=== PATIENT | female | born 2000 | race Two or more races ===

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

== ENCOUNTER 2025-09-22 15:04 | Emergency (ER) | payer MEDICAID, OTHER ==
[~2025-09-22] VITALS: Ht 157.5 cm; Wt 71.3 kg
--- NOTE | 2025-09-22 15:14 | ED.PDOC ---
Altered Mental Status HPI Comments 24 y.o female presents to the ED via EMS for an evaluation of a syncopal episode accompanied by substernal chest pain radiating to her upper back and nausea while working today. Patient states her chest became tight, heard a pop sensation and mentions did lose consciousness for a couple seconds. She denies any vomiting, fever, chills, SOB, or leg swelling. Time Seen by MD: 15:05 Primary Care Provider: JESSEEIES Reviewed Notes: Nurses Notes, Community Development Director Notes, Medications, Allergies Allergies: Coded Allergies: NO KNOWN ALLERGIES (Unverified , 05/26/16) Information Source: Patient, Emergency Med Personnel Mode of Arrival: EMS Severity: Moderate Timing: Hours Duration: Since onset Quality: Decreased Alertness, Change in Behavior Recent: Nausea History of: None Associated Signs and Symptoms: Chest Pain Past Medical History PAST MEDICAL HISTORY: Denies Surgical History: Denies all surgeries GLOBAL CLIMATE CHANGE ANALYST History: No Pertinent GLOBAL CLIMATE CHANGE ANALYST History Family History Family History: Unknown Social History Smoker: Non-Smoker Alcohol: Denies ETOH Use Drugs: Denies Drug Use Lives In: Home Constitutional: denies: chills, diaphoresis, fatigue, fever, malaise, sweats, weakness, others EENTM: denies: blurred vision, double vision, ear bleeding, ear discharge, ear drainage, ear pain, ear ringing, eye pain, eye redness, hearing loss, mouth pain, mouth swelling, nasal discharge, nose bleeding, nose congestion, nose pain, photophobia, tearing, throat pain, throat swelling, voice changes, others Respiratory: denies: cough, hemoptysis, orthopnea, SOB at rest, shortness of breath, SOB with excertion, stridor, wheezing, others Cardiovascular: reports: chest pain, syncope; denies: dizzy spells, diaphoresis, Dyspnea on exertion, edema, irregular heart beat, left arm pain, lightheadedness, palpitations, PND, others Gastrointestinal: reports: nausea; denies: abdomen distended, abdominal pain, blood streaked bowels, constipated, diarrhea, dysphagia, difficulty swallowing, hematemesis, melena, poor appetite, poor fluid intake, rectal bleeding, rectal pain, vomiting, others Genitourinary: denies: abnormal vagina bleeding, burning, dyspareunia, dysuria, flank pain, frequency, hematuria, incontinence, pain, , vagina discharge, urgency, others Neurological: denies: dizziness, fainting, headache, left sided numbness, left sided weakness, numbness, paresthesia, pre-existing deficit, right sided numbness, right sided weakness, seizure, speech problems, tingling, tremors, weakness, others Musculoskeletal: reports: back pain; denies: gout, joint pain, joint swelling, muscle pain, muscle stiffness, neck pain, others Integumetry: denies: bruises, change in color, change in hair/nails, dryness, laceration, lesions, lumps, rash, wounds, others Allergic/Immunocompromised: denies: Difficulty Healing, Frequent Infections, Hives, Itching, others Hematologic/Lymphatic: denies: anemia, blood clots, easy bleeding, easy bruising, swollen glands, others Endocrine: denies: excessive hunger, excessive sweating, excessive thirst, excessive urination, flushing, intolerance to cold, intolerance to heat, unexplained weight gain, unexplained weight loss, others Psychiatric: denies: anxiety, bipolar disorder, depression, hopeless, panic disorder, schizophrenia, sleepless, suicidal, others All Other Systems: Reviewed and Negative Physical Exam General Appearance: Moderate Distress HEENT: Normal ENT Inspection, Pharynx Normal, TMs Normal Neck: Full Range of Motion, Non-Tender, Normal, Normal Inspection Respiratory: Chest Non-Tender, Lungs Clear, No Accessory Muscle Use, No Respiratory Distress, Normal Breath Sounds Cardiovascular: No Edema, No JVD, No Murmur, No Gallop, Normal Peripheral Pulses, Regular Rate/Rhythm Breast Exam: Deferred Gastrointestinal: No Organomegaly, Non Tender, No Pulsatile Mass, Normal Bowel Sounds, Soft Genitalia: Deferred Pelvic: Deferred Rectal: Deferred Extremities: No calf tenderness, Normal capillary refill, Normal inspection, Normal range of motion, Non-tender, No pedal edema Musculoskeletal : Apperance: Normal Neurologic: Alert, skin washer II-XII nml as Tested, No Motor Deficits, Normal Affect, Normal Mood, No Sensory Deficits Cerebellar Function: Normal Reflexes: Normal Skin: Dry, Normal Color, Warm Peripheral Pulses: 3+ Radial (R), 3+ Radial (L) Lymphatic: No Adenopathy EKG EKG : Pulse Rate (adult): 78 Cardiac Rhythm: NSR Was a procedure done? Was a procedure done?: No Differential Diagnosis (ALOC) Differential Diagnosis: Dehydration, Hypoglycemia, Hypoxemia, Closed Head I njury X-Ray, Labs, Meds, VS Vital Signs Date Time Temp Pulse Resp B/P (MAP) Pulse Ox O2 Delivery O2 Flow Rate FiO2 09/22/25 16:30 98.7 84 121/80 (94) 18 98.7 09/22/25 15:31 98.2 74 16 128/87 98 98.2 09/22/25 15:14 78 09/22/25 15:04 78 Lab Test 09/22/25 15:45 09/22/25 15:42 Range/Units Troponin I High Sensitivity < 3 L </=34 ng/L Urine Color Light-yellow Yellow Urine Clarity Turbid H Clear Urine pH 5.5 5.0-9.0 Urine Specific [place] 1.015 1.001-1.035 Urine Protein Negative Negative Urine Ketones Negative Negative Urine Blood Negative Negative /uL Urine Nitrite Negative Negative Urine Bilirubin Negative Negative Urine Urobilinogen Normal Negative mg/dL Urine Leukocyte Esterase 2+ Negative /uL Urine RBC 5 0 - 4 /hpf Urine Microscopic WBC 5 0-5 /HPF Urine Squamous Epithelial Cells Mod <5 /hpf Urine Bacteria Few H None Seen /hpf Urine Mucus Few None Seen Urine Glucose Normal Normal mg/dL Patient alert. Came in because of chest discomfort. She also stated that she fell. Vitals stable. Answering questions. EKG reviewed does not show any acute changes. Urinalysis shows UTI. Was given prescription of Keflex antibiotic. Explained to the patient. Was told to follow up with her primary care physician. Was told to come back if there is any problem. Time of 1ST Reevaluation: 15:10 Reevaluation 1ST: Unchanged Patient Education/Counseling: Diagnosis, Treatment, Prognosis Family Education/Counseling: No Family Present SEPSIS Sepsis Screen Physician Orders Chest Portable (09/22/25 15:09) Head Without Contrast (09/22/25 15:09) Cervical Spine 3v (09/22/25 15:09) Electrocardigram (09/22/25 15:30) Vital Signs Date Time Temp Pulse Resp B/P (MAP) Pulse Ox O2 Delivery O2 Flow Rate FiO2 09/22/25 16:30 98.7 84 121/80 (94) 18 98.7 09/22/25 15:31 98.2 74 16 128/87 98 98.2 09/22/25 15:14 78 09/22/25 15:04 78 Departure 1 Departure Time of Disposition: 16:35 Impression: Primary Impression: Head injury Qualified Codes: S09.90XA - Unspecified injury of head, initial encounter Additional Impression: Urinary tract infection Qualified Codes: N30.00 - Acute cystitis without hematuria Disposition: 01 HOME / SELF CARE / HOMELESS Condition: Good e-Prescriptions Nitrofurantoin Monohydrate Mac (Macrobid) 100 Mg Cap 100 MG PO BID for 7 Days, #14 CAP Prov: NAVI SARMIENTO MD 09/22/25 Discharged With: Self Critical Care Note Critical Care Time?: No Stability Stability form required: No Heart Score Heart Score: Heart Score Response (Comments) Value History Slightly Suspicious 0 EKG Normal 0 Age <45 0 Risk Factors No known risk factors 0 Troponin Normal limit 0 Total 0 I personally scribed for NAVI SARMIENTO MD ([email or web address]) on 09/22/25 at 15:14. Electronically submitted by Salome Callaway ([email or web address]). NAVI SARMIENTO MD Sep 22, 2025 15:14
--- NOTE | 2025-09-22 16:00 | DVH ---
Cervical spine x-ray Technique: AP lateral and open-mouth views INDICATION: fall FINDINGS: No fractures or dislocations. Slight straightening of the normal cervical lordotic curvature possibly due to muscle spasm. IMPRESSION: 1. No acute bony trauma.
--- NOTE | 2025-09-22 16:03 | DVH ---
INDICATION: fall COMPARISON: None TECHNIQUE: Utilizing a multislice CT scanner, a CT scan of the brain was performed without intravenous contrast. Coronal and sagittal reformatted images. All CT scans at this facility use dose modulation, iterative reconstruction, and/or weight based dosing when appropriate to reduce radiation dose to as low as reasonably achievable. FINDINGS: There is no acute infarct, intracranial hemorrhage, or mass effect. There is no hydrocephalus or significant midline shift. No acute, depressed calvarial fractures. No large scalp hematomas. IMPRESSION: 1. No acute intracranial process.
--- NOTE | 2025-09-22 16:10 | DVH ---
AP portable chest CLINICAL INDICATION: sob FINDINGS: Heart size is normal. No infiltrates or effusions. No bony thoracic abnormalities. IMPRESSION: 1. Normal chest x-ray.
[2025-09-22 16:22] LABS: Urine Protein, UAD Negative (Negative)
[2025-09-22] MEDS ORDERED: NITR-87 PO (17:12)
[2025-09-22 19:04] VITALS: BP 135/94; PULSE 77; RESP 15; TEMP 98.8; O2SAT 96
--- NOTE | 2025-09-25 19:59 | ECG ---
[facility] Test Date: 2025-09-22 Test Time: 15:04:15 Pat Name: IRENE GOULD Department[facility] ED Patient [id number] Room: Gender: F Wrapper Sorter: SUNDAY : 2000 Requested By: NAVI SARMIENTO Order Number: [id number] Reading MD: Measurements Intervals [place] Rate: 78 P: 34 TX: 175 QRS: 48 QRSD: 79 T: 30 QT: 351 QTc: 400 Interpretive Statements Sinus rhythm Please click the below link to view image of tracing.
== END 2025-09-22 19:05 | disposition home or self-care (01) ==
LOC: ER 15:04 → EDBD 15:04 → ER 19:05
DX: S09.8XXA Other specified injuries of head, initial encounter (principal); N39.0 Urinary tract infection, site not specified; X58.XXXA Exposure to other specified factors, initial encounter; Y93.89 Activity, other specified; Y92.89 Other specified places as the place of occurrence of the external cause; Y99.8 Other external cause status
CPT/HCPCS: 36415; 70450; 71045; 72040; 81001; 82947; 84484; 93005